=== PATIENT | male | born 1995 | race Caucasian/White ===

== ENCOUNTER → 2018-07-17 | Outpatient (CLI) | payer MEDICAID ==
--- NOTE | 2018-07-17 10:53 | NM ---
EXAMINATION TYPE: NM gastric emptying study DATE OF EXAM: 07/17/2018 COMPARISON: CT abdomen pelvis 10/27/2015 HISTORY: Nausea and abdominal pain Following administration of 2 mCi Tc 99m Sulfur Colloid with 1 cup of oatmeal projection images of th e abdomen were obtained 10 minutes post ingestion. Both anterior and posterior projection images were obtained to allow the calculation of the geometric mean activity. Clearance: 99 % Half-life: 30 min Gastroesophageal reflux: None IMPRESSION: Gastric emptying: As above Gastroesophageal reflux: None visualized Gastric emptying normal percentage values: 30 minutes: <70% of retention (> 30% emptying) suggests abnormally fast emptying. 60 minutes: <90% retention (>10% emptying) is normal; less than 30% retention (>70% emptying) suggest s abnormally rapid emptying. 90 minutes: <65% retention (> 35% emptying) is normal. 120 minutes: <60% retention (> 40% emptying) is normal. 180 minutes: <30% retention (> 70% emptying) is normal. Gastric emptying T-1/2: Solid: The normal range is 60-105 minutes Liquid only: Normal range is 10-45 minutes. Liquid only-children: At 60 minutes, normal range is 44-58 % . Liquid only-infants: At 60 minutes, normal range is 32-64 %. Additional references: Gastric Emptying Scintigraphy [email or web address]://[email or web address]
== END ==
LOC: RADNMMAIN 06:44
DX: R11.0 Nausea (principal)
CPT/HCPCS: 78264; A9541

== ENCOUNTER 2020-03-02 13:15 | Emergency (ER) | payer MEDICAID ==
[2020-03-02 13:27] VITALS: RESP 18
--- NOTE | 2020-03-02 13:51 | ED ---
General Adult HPI - General Chief complaint: Seizure Stated complaint: Dizziness,Nausea Time Seen by Provider: 03/02/20 13:31 Source: patient Mode of arrival: ambulatory - History of Present Illness Initial comments: Dictation was produced using [employer] dictation software. please excuse any grammatical, word or spelling errors. This patient was cared for during a federal and state declared state of emergency secondary to Covid 19 Chief Complaint: 24-year-old male presents with seizure-like activity. History of Present Illness: I've-year-old male he is accompanied by his . Patient was observed by his to have seizure-like activity this morning wh ile sleeping. Patient was noted to have a flexure posture and was shaking around the bed for several minutes. He went back to sleep and didn't think much of it. Patient woke up feeling dizzy. He was recently started on Zoloft. Patient did not bite his tongue. No urinary or bowel or bladder incontinence. Patient feels fine at the moment. Patient has no history of seizures. The ROS documented in this emergency department record has been reviewed and confirmed by me. Those systems with pertinent positive or negative responses have been documented in the HPI. All other systems are other negative and/or noncontributory. PHYSICAL EXAM: General Impression: Alert and oriented x3, not in acute distress HEENT: Normocephalic atraumatic, extra-ocular movements intact, pupils equal and reactive to light bilaterally, mucous membranes moist. Cardiovascular: Heart regular rate and rhythm Chest: Able to complete full sentences, no retractions, no tachypnea Abdomen: abdomen soft, non-tender, non-distended, no organomegaly Musculoskeletal: Pulses present and equal in all extremities, no peripheral edema Motor: no focal deficits noted Neurological: CN II-XII grossly intact, no focal motor or sensory deficits noted Skin: Intact with no visualized rashes Psych: Normal affect and mood ED course: 24-year-old male with chief complaint for concerns of seizure while sleeping. Patient was an awake it's unclear whether patient had a post ictal state or not. Clinically speaking, it is not whether patient suffered a seizure or not. Patient did not have flexion posturing, there is unclear postictal state and patient did not express any incontinence.. Vital signs upon arrival are within acceptable limits. Laboratory evaluation obtained. CBC, metabolic panel is unremarkable.Computed tomography scan of the brain was obtained. There are low-lying cerebellar tonsils concerning for Chiari malformation.Highly doubt that patient expresses seizure however it's unclear. Patient reevaluated at bedside in stable medical condition he was told about his Chiari malformation. Patient may benefit from neurology referral recommended on an outpatient basis. Return parameters discussed. EKG interpretation: Ventricular rate 75, normal sinus rhythm,. Interval 150, QRS 86, QTC 410. No OH prolongation, no QTC prolongation, no ST or T-wave changes noted. . Overall, this EKG is unremarkable - Related Data Home Medications Medication Instructions Recorded Confirmed Colestipol HCl 2 g PO BID 03/03/14 03/11/16 Hyoscyamine Sulfate [Levbid] 0.375 mg PO BID 03/08/16 03/11/16 Omeprazole 40 mg PO AC-BRKFST 03/08/16 03/11/16 Previous Rx's Medication Instructions Recorded Ergocalciferol [Vitamin D2] 50,000 unit PO Q7D #14 cap 03/11/16 Allergies Allergy/AdvReac Type Severity Reaction Status Date / Time Penicillins Allergy Rash/Hives Verified 03/02/20 13:27 Sulfa (Sulfonamide Allergy Rash/Hives Verified 03/02/20 13:27 Antibiotics) Review of Systems ROS Statement: Those systems with pertinent positive or pertinent negative responses have been documented in the HPI. ROS Other: All systems not noted in ROS Statement are negative. Past Medical History Past Medical History: GERD/Reflux Additional Past Medical History / Comment(s): SEVERE IBS. migraines, History of Any Multi-Drug Resistant Organisms: None Reported Past Surgical History: Cholecystectomy, Hernia Repair Additional Past Surgical History / Comment(s): lymph node removed from neck Past Anesthesia/Blood Transfusion Reactions: Previous Problems w/ Anesthesia Additional Past Anesthesia/Blood Transfusion Reaction / Comment(s): WAKES UP VERY COMBATIVE. Past Psychological History: No Psychological Hx Reported Smoking Status: Never smoker Past Alcohol Use History: None Reported Past Drug Use History: None Reported - Past Family History Mother Family Medical History: No Reported History Course Vital Signs 03/02/20 03/02/20 13:23 14:09 Temperature 98.9 F Pulse Rate 81 71 Respiratory 18 18 Rate Blood Pressure 123/86 126/85 O2 Sat by Pulse 98 96 Oximetry Medical Decision Making - Lab Data Result diagrams: 03/02/20 13:53 03/02/20 13:53 Lab Results 03/02/20 03/02/20 Range/Units 13:53 13:53 WBC 6.9 (3.8-10.6) k/uL RBC 5.38 (4.30-5.90) m/uL Hgb 16.3 (13.0-17.5) gm/dL Hct 46.3 (39.0-53.0) % MCV 86.0 (80.0-100.0) fL MCH 30.4 (25.0-35.0) pg MCHC 35.3 (31.0-37.0) g/dL RDW 12.1 (11.5-15.5) % Plt Count 197 (150-450) k/uL Neutrophils % 64 % Lymphocytes % 24 % Monocytes % 7 % Eosinophils % 2 % Basophils % 1 % Neutrophils # 4.4 (1.3-7.7) k/uL Lymphocytes # 1.6 (1.0-4.8) k/uL Monocytes # 0.5 (0-1.0) k/uL Eosinophils # 0.2 (0-0.7) k/uL Basophils # 0.1 (0-0.2) k/uL Sodium 137 (137-145) mmol/L Potassium 4.0 (3.5-5.1) mmol/L Chloride 106 (98-107) mmol/L Carbon Dioxide 24 (22-30) mmol/L Anion Gap 7 mmol/L BUN 11 (9-20) mg/dL Creatinine 0.75 (0.66-1.25) mg/dL Est GFR (CKD-EPI)AfAm >90 (>60 ml/min/1.73 sqM) Est GFR (CKD-EPI)NonAf >90 (>60 ml/min/1.73 sqM) Glucose 92 (74-99) mg/dL Calcium 9.5 (8.4-10.2) mg/dL Magnesium 2.2 (1.6-2.3) mg/dL Disposition Clinical Impression: Seizure Disposition: HOME SELF-CARE Condition: Good Instructions (If sedation given, give patient instructions): New-Onset Seizure in Adults (ED) Is patient prescribed a controlled substance at d/c from ED?: No Referrals: Tahir Cope MD [Primary Care Provider] - 1-2 days Time of Disposition: 14:56
[2020-03-02 14:25] LABS: Basophils # (A) 0.1 k/uL (0-0.2); Basophils % (A) 1 %; Eosinophils # (A) 0.2 k/uL (0-0.7); Eosinophils % (A) 2 %; HCT 46.3 % (39.0-53.0); HGB 16.3 gm/dL (13.0-17.5); Lymphocytes # (A) 1.6 k/uL (1.0-4.8); Lymphocytes % (A) 24 %; MCH 30.4 pg (25.0-35.0); MCHC 35.3 g/dL (31.0-37.0); Mean Platelet Volume 9.6; Monocytes # (A) 0.5 k/uL (0-1.0); Monocytes % (A) 7 %; Neutrophils # (A) 4.4 k/uL (1.3-7.7); Neutrophils % (A) 64 %; Platelet Count 197 k/uL (150-450); RBC 5.38 m/uL (4.30-5.90); RDW 12.1 % (11.5-15.5); WBC 6.9 k/uL (3.8-10.6)
[2020-03-02 14:32] LABS: African American GFR (CKD) >90 (>60 ml/min/1.73 sqM); Anion Gap 7 mmol/L; Blood Urea Nitrogen 11 mg/dL (9-20); Calcium 9.5 mg/dL (8.4-10.2); Carbon Dioxide 24 mmol/L (22-30); Chloride 106 mmol/L (98-107); Glucose 92 mg/dL (74-99); Magnesium 2.2 mg/dL (1.6-2.3); Non-African American GFR(CKD) >90 (>60 ml/min/1.73 sqM); Sodium 137 mmol/L (137-145)
--- NOTE | 2020-03-02 14:45 | CT ---
EXAMINATION TYPE: CT brain wo con DATE OF EXAM: 03/02/2020 COMPARISON: 05/09/2013 HISTORY: Possible seizure when sleeping. Headache. CT DLP: 1025.4 mGycm. Automated Exposure Control for Dose Reduction was Utilized. TECHNIQUE: CT scan of the head is performed without contrast. FINDINGS: There is no acute intracranial hemorrhage, mass effect, or midline shift identified. The ventricles and sulci are within normal limits in size. The globes are intact and the visualized sin uses are clear. Cerebellar tonsils low-lying in position. IMPRESSION: 1. Cerebellar tonsils are low-lying in position correlation with MRI recommended for Chiari malformat ion.
[2020-03-02 15:08] VITALS: BP 127/73; PULSE 86; TEMP 98.4
== END 2020-03-02 15:09 | disposition home or self-care (01) ==
LOC: EC 13:15
DX: R56.9 Unspecified convulsions (principal); R42 Dizziness and giddiness; R11.0 Nausea; K21.9 Gastro-esophageal reflux disease without esophagitis; Z79.899 Other long term (current) drug therapy; Z88.0 Allergy status to penicillin; Z88.2 Allergy status to sulfonamides
CPT/HCPCS: 36415; 70450; 80048; 83735; 85025; 93005; 99285

== ENCOUNTER → 2020-03-13 | Outpatient (CLI) | payer MEDICAID ==
--- NOTE | 2020-03-13 15:24 | EEG ---
ELECTROENCEPHALOGRAM REPORT DATE OF SERVICE: 03/13/2020. PREAMBLE: This is a 24-year-old male who had 2 seizure-like episodes in the last couple of weeks. The first one his mentioned that was thrashing around in the bed. There was no reported tongue biting or incontinence of urine. The second time he was awake and reports that he was staring off and could not stop himself. This lasted for about a minute. He has been diagnosed with Chiari malformation. He states he has been feeling foggy for days after each episode. Also gets headaches. This is a sleep-deprived EEG. EEG FINDINGS: This is a 21 channel sleep-deprived EEG performed in a patient utilizing 10-20 international system with referential and bipolar montages. Background consists of well developed, well regulated, moderate voltage activity in 10-11 hertz alpha. Background is posterior dominant and reactive to eye opening and closing. Photic driving response was not seen. Drowsiness was seen with appearance of bilaterally symmetric theta frequency rhythm, but deeper stages of sleep was not attained. No focal or generalized epileptiform activity was seen. IMPRESSION: This is a normal awake and drowsy EEG. No focal lateralized or epileptiform activity was seen. MMODL / IJN: [id number] /
== END | disposition home or self-care (01) ==
LOC: NEUROMAIN 07:44
PROVIDERS: ATTEND Nurse Practitioner Family
DX: R56.9 Unspecified convulsions (principal)
CPT/HCPCS: 95819

== ENCOUNTER 2021-10-02 08:09 | Emergency (ER) | payer MEDICAID ==
[2021-10-02 08:37] VITALS: BP 107/70; PULSE 86; RESP 18
[2021-10-02 10:05] LABS: Appearance,Urine Clear (Clear); Bilirubin,Urine Negative (Negative); Blood,Urine Moderate (Negative); Color,Urine Yellow; Glucose,Urine (UA) Negative (Negative); Ketones,Urine Negative (Negative); Leukocyte Esterase,Urine Negative (Negative); Mucus,Urine Many /hpf; Nitrite,Urine Negative (Negative); Protein,Urine Trace (Negative); RBC,Urine 44 /hpf (0-5); Urobilinogen,Urine <2.0 mg/dL (<2.0); WBC,Urine 1 /hpf (0-5)
[2021-10-02] MEDS ORDERED: KETOROLAC 15 MG/ML 1 ML VIAL IVP STA (10:14)
[2021-10-02] MEDS ORDERED: ONDANSETRON 4 MG/2 ML VIAL IVP STA (10:14)
[2021-10-02] MEDS ORDERED: SODIUM CHLORIDE 0.9% 1,000 ML IV STA (10:14)
--- NOTE | 2021-10-02 10:32 | ED ---
Abdominal Pain HPI - General Chief Complaint: Abdominal Pain Stated Complaint: Lower Back Pain/NVD Time Seen by Provider: 10/02/21 10:04 Source: patient, family Mode of arrival: ambulatory Limitations: no limitations - History of Present Illness Initial Comments: Is a 26-year-old male presenting to the ER with chief complaint of flank pain. Patient states "I'm having kidney pain". He woke up about 3 hours ago with a sharp cramping to the left flank. This is accompanied by nausea and vomiting. Yesterday evening he was experiencing vague abdominal cramping before bed. He has not taken any [id number] pain medications at home. Patient states that when urinating he experiences cramping of the left lower flank. He states that when he provided a urine sample here "It looked like there was a physical object in the cup". Patient has no history of nephrolithiasis or renal colic. Patient denies diarrhea, chest pain, shortness of breath, hematuria, dysuria, urgency, frequency, hematochezia, hematemesis, fever, chills, headache, vision changes. MD Complaint: flank pain - Related Data Home Medications Medication Instructions Recorded Confirmed Colestipol HCl 1 gm PO BID 03/03/14 10/02/21 Hyoscyamine Sulfate [Levbid] 0.375 mg PO BID 03/08/16 10/02/21 Famotidine [Pepcid] 40 mg PO DAILY 10/02/21 10/02/21 Previous Rx's Medication Instructions Recorded Tamsulosin [Flomax] 0.4 mg PO DAILY 5 Days #5 cap 10/02/21 Allergies Allergy/AdvReac Type Severity Reaction Status Date / Time Penicillins Allergy Rash/Hives Verified 10/02/21 08:37 Sulfa (Sulfonamide Allergy Rash/Hives Verified 10/02/21 08:37 Antibiotics) Review of Systems ROS Statement: Those systems with pertinent positive or pertinent negative responses have been documented in the HPI. ROS Other: All systems not noted in ROS Statement are negative. Past Medical History Past Medical History: GERD/Reflux Additional Past Medical History / Comment(s): SEVERE IBS. migraines, History of Any Multi-Drug Resistant Organisms: None Reported Past Surgical History: Cholecystectomy, Hernia Repair Additional Past Surgical History / Comment(s): lymph node removed from neck Past Anesthesia/Blood Transfusion Reactions: Previous Problems w/ Anesthesia Additional Past Anesthesia/Blood Transfusion Reaction / Comment(s): WAKES UP VERY COMBATIVE. Past Psychological History: No Psychological Hx Reported Smoking Status: Never smoker Past Alcohol Use History: None Reported Past Drug Use History: None Reported - Past Family History Mother Family Medical History: No Reported History General Exam Limitations: no limitations General appearance: alert, in no apparent distress Head exam: Present: atraumatic, normocephalic, normal inspection Eye exam: Present: normal appearance, PERRL, EOMI. Absent: scleral icterus, conjunctival injection, periorbital swelling ENT exam: Present: normal exam, mucous membranes moist Neck exam: Present: normal inspection Respiratory exam: Present: normal lung sounds bilaterally. Absent: respiratory distress, wheezes, rales, rhonchi, stridor Cardiovascular Exam: Present: regular rate, normal rhythm, normal heart sounds. Absent: systolic murmur, diastolic murmur, rubs, gallop, clicks GI/Abdominal exam: Present: soft, tenderness (Left LLQ pain), normal bowel sounds. Absent: distended, guarding, rebound, rigid Back exam: Present: CVA tenderness (L). Absent: CVA tenderness (R) Neurological exam: Present: alert, oriented X3, CN II-XII intact Psychiatric exam: Present: normal affect, normal mood Skin exam: Present: warm, dry, intact, normal color. Absent: rash Course Vital Signs 10/02/21 08:33 Temperature 97.4 F L Pulse Rate 86 Respiratory 18 Rate Blood Pressure 107/70 O2 Sat by Pulse 97 Oximetry Medical Decision Making - Medical Decision Making Patient is a 26-year-old male presenting with a chief complaint of left flank pain. Patient awoke with pain this morning, it was accompanied by nausea and vomiting. It is a sharp cramping pain, he feels this pain when urinating. On exam there is tenderness of the left lower quadrant and some mild CVA left-sided tenderness. Urine is remarkable for moderate blood, 44 RBC present, mucus present. Mild leukocytosis, WBC 10.8. KUB x-ray impression of nonspecific abdomen. CT abdomen and pelvis without contrast is unremarkable. Pain likely due to kidney stone that has passed. Prescribed patient 5 days of Flomax. Follow up with urology if needed. May use Motrin and Tylenol as needed for pain control. Follow-up with PCP in one to 2 days. Answered all questions. Grey huerta conveyed verbal understanding and agreed to the plan. My attending is Dr. Tello. - Lab Data Result diagrams: 10/02/21 11:10 10/02/21 11:10 Lab Results 10/02/21 10/02/21 10/02/21 Range/Units 09:44 11:10 11:10 WBC 10.8 H (3.8-10.6) k/uL RBC 5.19 (4.30-5.90) m/uL Hgb 16.5 (13.0-17.5) gm/dL Hct 45.4 (39.0-53.0) % MCV 87.5 (80.0-100.0) fL MCH 31.7 (25.0-35.0) pg MCHC 36.3 (31.0-37.0) g/dL RDW 11.8 (11.5-15.5) % Plt Count 243 (150-450) k/uL MPV 7.4 Neutrophils % 77 % Lymphocytes % 16 % Monocytes % 5 % Eosinophils % 1 % Basophils % 1 % Neutrophils # 8.4 H (1.3-7.7) k/uL Lymphocytes # 1.7 (1.0-4.8) k/uL Monocytes # 0.5 (0-1.0) k/uL Eosinophils # 0.1 (0-0.7) k/uL Basophils # 0.1 (0-0.2) k/uL Sodium 138 (137-145) mmol/L Potassium 4.1 (3.5-5.1) mmol/L Chloride 107 (98-107) mmol/L Carbon Dioxide 22 (22-30) mmol/L Anion Gap 9 mmol/L BUN 13 (9-20) mg/dL Creatinine 0.79 (0.66-1.25) mg/dL Est GFR (CKD-EPI)AfAm >90 (>60 ml/min/1.73 sqM) Est GFR (CKD-EPI)NonAf >90 (>60 ml/min/1.73 sqM) Glucose 88 (74-99) mg/dL Calcium 9.2 (8.4-10.2) mg/dL Total Bilirubin 1.0 (0.2-1.3) mg/dL AST 38 (17-59) U/L ALT 66 H (4-49) U/L Alkaline Phosphatase 95 (38-126) U/L Total Protein 7.3 (6.3-8.2) g/dL Albumin 4.5 (3.5-5.0) g/dL Amylase 49 (30-110) U/L Lipase 47 (23-300) U/L Urine Color Yellow Urine Appearance Clear (Clear) Urine pH 6.0 (5.0-8.0) Ur Specific Central 1.020 (1.001-1.035) Urine Protein Trace H (Negative) Urine Glucose (UA) Negative (Negative) Urine Ketones Negative (Negative) Urine Blood Moderate H (Negative) Urine Nitrite Negative (Negative) Urine Bilirubin Negative (Negative) Urine Urobilinogen <2.0 (<2.0) mg/dL Ur Leukocyte Esterase Negative (Negative) Urine RBC 44 H (0-5) /hpf Urine WBC 1 (0-5) /hpf Urine Mucus Many H (None) /hpf - Radiology Data Radiology results: report reviewed Abdominal X-ray: Nonacute abdomen Abdominal CT without contrast: Unremarkable Disposition Clinical Impression: Nephrolithiasis, Nausea & vomiting, Flank pain Disposition: HOME SELF-CARE Condition: Good Instructions (If sedation given, give patient instructions): Kidney Stones (ED), Abdominal Pain (ED), Flank Pain (ED) Additional Instructions: Take medication as prescribed. Report back to ER with worsening symptoms or new onset alarm symptoms. Follow-up with PCP in one to 2 days. Follow-up with urology if needed. Prescriptions: Tamsulosin [Flomax] 0.4 mg PO DAILY 5 Days #5 cap Is patient prescribed a controlled substance at d/c from ED?: No Referrals: Tahir Cope MD [Primary Care Provider] - 1-2 days Yoni Vail MD [STAFF PHYSICIAN] - 10/09/21 Time of Disposition: 14:22
--- NOTE | 2021-10-02 11:30 | XR ---
EXAMINATION TYPE: XR KUB DATE OF EXAM: 10/02/2021 COMPARISON: 10/27/2015 HISTORY: Left flank pain TECHNIQUE: One view abdominal series FINDINGS: The osseous structures are intact. The bowel gas pattern is nonspecific. Lung bases are clear. Posts urgical changes involving the right upper quadrant. Calcifications in the pelvis are stable and likel y vascular. No suspicious calcifications overlying the renal outlines. Small sclerotic density overly ing the left femoral head most likely in the basis of bone island. IMPRESSION: 1. Nonspecific abdomen.
[2021-10-02 11:36] LABS: ALT 66 U/L (4-49); AST 38 U/L (17-59); African American GFR (CKD) >90 (>60 ml/min/1.73 sqM); Albumin 4.5 g/dL (3.5-5.0); Alkaline Phosphatase 95 U/L (38-126); Amylase 49 U/L (30-110); Anion Gap 9 mmol/L; Blood Urea Nitrogen 13 mg/dL (9-20); Calcium 9.2 mg/dL (8.4-10.2); Carbon Dioxide 22 mmol/L (22-30); Chloride 107 mmol/L (98-107); Glucose 88 mg/dL (74-99); Lipase 47 U/L (23-300); Non-African American GFR(CKD) >90 (>60 ml/min/1.73 sqM); Potassium 4.1 mmol/L (3.5-5.1); Sodium 138 mmol/L (137-145); Total Protein 7.3 g/dL (6.3-8.2)
[2021-10-02 11:47] LABS: Basophils # (A) 0.1 k/uL (0-0.2); Basophils % (A) 1 %; Eosinophils # (A) 0.1 k/uL (0-0.7); Eosinophils % (A) 1 %; HCT 45.4 % (39.0-53.0); HGB 16.5 gm/dL (13.0-17.5); Lymphocytes # (A) 1.7 k/uL (1.0-4.8); Lymphocytes % (A) 16 %; MCH 31.7 pg (25.0-35.0); MCHC 36.3 g/dL (31.0-37.0); MCV 87.5 fL (80.0-100.0); Mean Platelet Volume 7.4; Monocytes # (A) 0.5 k/uL (0-1.0); Monocytes % (A) 5 %; Neutrophils # (A) 8.4 k/uL (1.3-7.7); Neutrophils % (A) 77 %; Platelet Count 243 k/uL (150-450); RBC 5.19 m/uL (4.30-5.90); RDW 11.8 % (11.5-15.5); WBC 10.8 k/uL (3.8-10.6)
[2021-10-02 12:23] VITALS: TEMP 97.4
--- NOTE | 2021-10-02 13:31 | CT ---
EXAMINATION TYPE: CT abdomen pelvis wo con DATE OF EXAM: 10/02/2021 HISTORY: Left sided flank pain CT DLP: 689.8 mGycm. Automated Exposure Control for Dose Reduction was Utilized. TECHNIQUE: CT scan of the abdomen and pelvis is performed without oral or IV contrast. COMPARISON: CT abdomen and pelvis October 27, 2015 FINDINGS: Within the limitations of a non-contrast study, the following observations are made. LUNG BASES: Tiny 1 to 2 mm peripheral right lower lobe nodule axial image 5. LIVER/GB: Cholecystectomy clips redemonstrated. PANCREAS: No significant abnormality is seen. SPLEEN: No significant abnormality is seen. ADRENALS: No significant abnormality is seen. KIDNEYS: No renal stones or hydronephrosis seen bilaterally. No intraluminal calculus in the bladder. Circumaortic left renal vein which is normal variant. BOWEL: Suboptimal evaluation without enteric contrast. No suspicious small or large bowel dilatation. Normal appearing appendix from the cecum. Slightly redundant sigmoid colon with few tiny diverticula proximally thought present. No CT evidence for acute diverticulitis. GENITAL ORGANS: No gross abnormality seen. LYMPH NODES: No greater than 1cm abdominal or pelvic lymph nodes are appreciated. OSSEOUS STRUCTURES: No significant abnormality is seen. OTHER: Small to moderate-sized fat-containing umbilical hernia redemonstrated. IMPRESSION: No renal stones or hydronephrosis is seen bilaterally. No suspicious new or acute finding s identified.
== END 2021-10-02 14:28 | disposition home or self-care (01) ==
LOC: EC 08:09
DX: N20.0 Calculus of kidney (principal); R11.2 Nausea with vomiting, unspecified; Z88.0 Allergy status to penicillin; Z88.2 Allergy status to sulfonamides
CPT/HCPCS: 36415; 80053; 82150; 83690; 85025; 81001; 74018; 74176; 99284; 96374; 96375; 96361; J2405; J1885

== ENCOUNTER → 2024-01-02 | Outpatient (CLI) | payer MEDICAID | END | disposition home or self-care (01) | LOC: LABMAIN 06:53 | PROVIDERS: ATTEND Emergency Medicine | DX: Z20.822 Contact with and (suspected) exposure to COVID-19 (principal); R07.0 Pain in throat | CPT/HCPCS: 87636; 87651 ==